=== PATIENT | male | born 1990 | race Caucasian/White ===

== ENCOUNTER 2016-08-09 15:58 | Emergency (ER) | payer SELFPAY ==
[2016-08-09 16:25] VITALS: BP 171/76
--- NOTE | 2016-08-09 17:20 | RAD ---
INDICATION: Injury COMPARISON: None TECHNIQUE: Routine 2 view imaging was performed FINDINGS: Bones: There are no acute bony findings. There are no significant osteoarthritic findings. Alignment: There is mild kyphoscoliosis Disc spaces: The disc spaces are well-maintained Soft tissues: There are no soft tissue abnormalities. IMPRESSION: MILD KYPHOSCOLIOSIS, OTHERWISE NEGATIVE.
--- NOTE | 2016-08-09 17:38 | UC ---
Back Pain HPI - HPI Summary HPI Summary: PATIENT ARRIVES WITH 2 WEEK HISTORY OF MID THORACIC BACK PAIN AFTER INJURING IT ON A WOOD OBJECT IN HIS GARAGE. HE STATES THE PAIN WAS NOT THERE AFTER INJURY, BUT NOW HAS BECOME WORSE. HE REQUESTS AN XRAY TO MAKE SURE NOTHING HAS BEEN FRACTURED. HE IS ALSO C/O RIGHT SHOULDER PAIN WHICH HAS BEEN PRESENT FOR SEVERAL WEEKS AND HAS BEEN GETTING WORSE. 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 THE PAIN TRAVELS FROM THE BASE OF THE NECK ON THE RIGHT SIDE TO THE POSTERIOR SHOULDER. HE HAS FULL ROM OF BOTH ARMS. HE IS ABLE TO ROTATE AT THE HIPS AND CAN FLEX AND EXTEND AT THE HIPS, BUT WITH PAIN. - History of Current Complaint Chief Complaint: UCBackPain Stated Complaint: BACK PAIN Time Seen by Provider: 08/09/16 16:35 Hx Obtained From: Patient Onset/Duration: Sudden Onset Timing: Constant Severity Initially: Moderate Severity Currently: Moderate Pain Intensity: 8 Pain Scale Used: 0-10 Numeric Back Pain: Is Discrete @ - MID THORACIC BACK AND RIGHT POSTERIOR SHOULDER Character: Dull, Spasmodic Aggravating: Movement, Lifting, Bending, Walking Alleviating: Heat Associated Signs And Symptoms: Positive: Negative - Risk Factors AAA Risk Factors: Negative TAD Risk Factors: Negative Cauda Equina Risk Factors: Negative Epidural Abscess Risk Factors: Negative - Allergies/Home Medications Allergies/Adverse Reactions: Allergies Allergy/AdvReac Type Severity Reaction Status Date / Time Cefaclor [From Replaced By [facility]] Allergy Intermediate Hives Verified 08/09/16 16:25 Home Medications: Home Medications Acetaminophen TAB* [Tylenol TAB*] 650 mg PO Q4H PRN 08/09/16 [History Confirmed 08/09/16] PMH/Surg Hx/FS Hx/Imm Hx Previously Healthy: Yes Endocrine History Of: Denies: Diabetes Cardiovascular History Of: Reports: Hypertension Respiratory History Of: Denies: Asthma - Surgical History Surgical History: Yes Surgery Procedure, Year, and Place: t & a. right knee/ACL. ear tubes. left hand/foreign body. pyelonidal cyst - Family History Known Family History: Positive: Other - dad with AAA - Social History Occupation: Employed Full-time Lives: With Family Alcohol Use: Rare Substance Use Type: None Smoking Status (MU): Former Smoker Type: Smokeless Tobacco Amount Used/How Often: /2 CAN Length of Time of Smoking/Using Tobacco: 3 YRS Have You Smoked in the Last Year: No Review of Systems Constitutional: Negative Skin: Negative ENT: Negative Respiratory: Negative Cardiovascular: Negative Gastrointestinal: Negative Musculoskeletal: Negative Neurological: Negative Psychological: Negative All Other Systems Reviewed And Are Negative: Yes Physical Exam Triage Information Reviewed: Yes Appearance: Well-Appearing, No Pain Distress, Well-Nourished Vital Signs: Initial Vital Signs Temp 99 F 08/09/16 16:17 Pulse 90 08/09/16 16:17 Resp 18 08/09/16 16:17 BP 171/76 08/09/16 16:17 Pulse Ox 99 08/09/16 16:17 Vital Signs Reviewed: Yes Eyes: Positive: Conjunctiva Clear ENT Exam: Normal ENT: Positive: Normal ENT inspection, Hearing grossly normal, Pharynx normal Respiratory Exam: Normal Respiratory: Positive: Chest non-tender, Lungs clear Cardiovascular Exam: Normal Musculoskeletal: Positive: Strength Intact Neurological Exam: Normal Neurological: Positive: Alert Psychological Exam: Normal Psychological: Positive: Normal Response To Family, Age Appropriate Behavior Skin Exam: Normal Back Pain Course/Dx - Course Course Of Treatment: PATIENT ENCOURAGED TO FOLLOW UP WITH ORTHO. NOTE GIVEN FOR WORK FOR OVERUSE INJURY OF THE RIGHT SHOULDER. MID THORACIC BACK PAIN FROM BACK CONTUSION 2 WEEKS AGO. FLEXERIL GIVEN FOR SHOULDER PAIN. - Differential Dx/Diagnosis Differential Diagnosis/HQI/PQRI: Compressive Cord Syndrome, Fracture, Strain, Sprain Provider Diagnoses: BACK CONTUSION AND SHOULDER TENDINITIS Discharge - Discharge Plan Condition: Stable Disposition: HOME Prescriptions: Cyclobenzaprine TAB* [Flexeril 10 MG TAB*] 10 mg PO BID PRN #20 tab PRN Reason: Pain Patient Education Materials: Tendinitis (ED), Back Pain (ED) Forms: *Work Release Referrals: Trent Slaughter MD [Primary Care Provider] - Additional Instructions: IBUPROFEN 600MG THREE TIMES DAILY X 7 DAYS. USE FLEXERIL FOR THE SHOULDER UP TO TWICE DAILY FOR 7 DAYS. USE MOIST HEAT TO THE AREA SEVERAL TIMES PER DAY. Flexeril: This medication is a muscle relaxant and can help relieve muscle spasms, muscle strain, or pain sensations. Flexeril can cause side effects that may impair your thinking or reactions. Be careful if you drive or do anything that requires you to be awake and alert. Avoid drinking alcohol, which can increase some of the side effects of Flexeril. Ibuprofen 600mg three times daily with meals for discomfort. Return to ED if symptoms worsen or fail to improve, notice worsening swelling, warmth or redness around the joint, develop fever, or pain is uncontrolled with OTC medications. Moist heat to the area for comfort. Warm showers or baths may improve symptoms. It is important to remain mobile as tolerated to prevent stiffening of the joints and delay healing. Follow up with your PCP. If symptoms remain for > 6 weeks, please seek special medical attention from an orthopedic physician.
== END 2016-08-09 17:50 | disposition home or self-care (01) ==
LOC: UCCORT 15:58
DX: S20.229A Contusion of unspecified back wall of thorax, initial encounter (principal); X58.XXXA Exposure to other specified factors, initial encounter; Y93.9 Activity, unspecified; Y92.9 Unspecified place or not applicable; M75.91 Shoulder lesion, unspecified, right shoulder; I10 Essential (primary) hypertension; Z88.1 Allergy status to other antibiotic agents; Z87.891 Personal history of nicotine dependence
CPT/HCPCS: 72070; 99212; G0463

== ENCOUNTER 2016-09-11 11:16 | Emergency (ER) | payer BC ==
--- NOTE | 2016-09-11 14:26 | RAD ---
HISTORY: Persistent pain, numbness of right great toe COMPARISONS: None VIEWS: 3, Frontal, lateral, and oblique views of the first digit of the right foot FINDINGS: BONE DENSITY: Normal. BONES: There is no displaced fracture. JOINTS: There is no arthropathy. ALIGNMENT: There is no dislocation. SOFT TISSUES: Unremarkable. OTHER FINDINGS: None. IMPRESSION: NO ACUTE OSSEOUS INJURY. IF SYMPTOMS PERSIST, RECOMMEND REPEAT IMAGING.
--- NOTE | 2016-09-11 14:52 | UC ---
Ear Complaint HPI - HPI Summary HPI Summary: RIGHT EAR PAIN FOR ONE WEEK. RIGHT GREAT TOE PAIN FOR SEVERAL WEEKS, PAIN AT TIP OF TOE. NO INJURY. NO DM. NO HX OF GOUT. NO FEVER. HAS HAD NASAL CONGESTION AND PRESSURE FOR A WEEK. - History of Current Complaint Chief Complaint: UCEar Stated Complaint: RIGHT EAR COMPLAINT Time Seen by Provider: 09/11/16 13:35 Hx Obtained From: Patient Onset/Duration: Gradual Onset, Lasting Weeks, Still Present Severity Initially: Mild Severity Currently: Moderate Associated Signs/Symptoms: Positive: URI Symptoms. Negative: Discharge, Hearing Loss, Foreign Body Sensation, Trauma to Ear, Swelling @ - Allergies/Home Medications Allergies/Adverse Reactions: Allergies Allergy/AdvReac Type Severity Reaction Status Date / Time Cefaclor [From [facility]] Allergy Intermediate Hives Verified 09/11/16 11:52 PMH/Surg Hx/FS Hx/Imm Hx Previously Healthy: Yes Endocrine History Of: Denies: Diabetes Cardiovascular History Of: Reports: Hypertension Respiratory History Of: Denies: Asthma - Surgical History Surgical History: Yes Surgery Procedure, Year, and Place: t & a. right knee/ACL. ear tubes. left hand/foreign body. pyelonidal cyst - Family History Known Family History: Positive: Diabetes, Other - dad with AAA; NO HISTORY OF GOUT - Social History Occupation: Employed Full-time Lives: With Family Alcohol Use: Occasionally Substance Use Type: None Smoking Status (MU): Heavy Every Day Tobacco Smoker Type: Smokeless Tobacco Amount Used/How Often: 1 CAN Length of Time of Smoking/Using Tobacco: started at age 22 Have You Smoked in the Last Year: No Cessation Counseling: Patient Advised to Stop Review of Systems Constitutional: Negative Skin: Negative Eyes: Negative ENT: Ear Ache, Nasal Discharge Respiratory: Cough Cardiovascular: Negative Gastrointestinal: Negative Genitourinary: Negative Motor: Negative Neurovascular: Negative Musculoskeletal: Arthralgia - RIGHT GREAT TOE, Myalgia - RIGHT GREAT TOE Neurological: Negative Psychological: Negative All Other Systems Reviewed And Are Negative: Yes Physical Exam Triage Information Reviewed: Yes Appearance: Well-Appearing, No Pain Distress, Well-Nourished Vital Signs: Initial Vital Signs Temp 98.4 F 09/11/16 11:44 Pulse 90 09/11/16 11:44 Resp 14 09/11/16 11:44 BP 166/85 09/11/16 11:44 Pulse Ox 100 09/11/16 11:44 Vital Signs Reviewed: Yes Eye Exam: Normal Eyes: Positive: Conjunctiva Clear ENT: Positive: Normal ENT inspection, Hearing grossly normal, Pharynx normal, TM bulging, TM dull Dental Exam: Normal Neck exam: Normal Neck: Positive: Supple, Nontender Respiratory Exam: Normal Respiratory: Positive: Chest non-tender, Lungs clear, Normal breath sounds, No respiratory distress, No accessory muscle use Cardiovascular Exam: Normal Cardiovascular: Positive: RRR, No Murmur, Pulses Normal Abdominal Exam: Normal Musculoskeletal Exam: Normal Musculoskeletal: Positive: Strength Intact, ROM Intact, No Edema, Other: - RIGHT GREAT TOE NO BRUISING, NO RASHES, NO LESIONS. TENDER TO DISTAL TIP OF TOE Neurological Exam: Normal Psychological Exam: Normal Skin Exam: Normal Ear Complaint Course/Dx - Differential Dx/Diagnosis Differential Diagnosis/HQI/PQRI: Otitis Media, URI Provider Diagnoses: RIGHT GREAT TOE ARTHRALGIA;. SINSUITIS; RIGHT OTITIS MEDIA Discharge - Discharge Plan Condition: Stable Disposition: HOME Prescriptions: Amoxicillin/Clavulanate TAB* [Augmentin TAB 875*] 875 mg PO BID #20 tab Patient Education Materials: Sinusitis (ED), Otitis Media (ED), Arthralgia (ED) Forms: *Work Release Referrals: Trent Slaughter MD [Primary Care Provider] -
[2016-09-11 14:55] VITALS: BP 151/74
== END 2016-09-11 14:51 | disposition home or self-care (01) ==
LOC: UCCORT 11:16
DX: H66.91 Otitis media, unspecified, right ear (principal); J32.9 Chronic sinusitis, unspecified; M79.674 Pain in right toe(s); Z88.1 Allergy status to other antibiotic agents; F17.210 Nicotine dependence, cigarettes, uncomplicated
CPT/HCPCS: 99212; G0463

== ENCOUNTER 2016-11-21 16:04 | Emergency (ER) | payer BC ==
[2016-11-21 16:47] VITALS: BP 156/85
--- NOTE | 2016-11-21 18:08 | RAD ---
INDICATION: "Tripped in pothole while drunk last night" COMPARISON: None. TECHNIQUE: 3 views of the left ankle were obtained. FINDINGS: There is soft tissue swelling overlying the fibular malleolus. The well corticated bones of the ankle exhibit normal alignment. Joint spaces appear maintained. No fracture is seen. On the oblique view of the ankle there is identification of possible cortical discontinuity involving the distal left fifth metatarsal. IMPRESSION: 1. SOFT TISSUE SWELLING WITHOUT RADIOGRAPHICALLY APPARENT ANKLE FRACTURE OR DISLOCATION. 2. POSSIBLE NONDISPLACED FRACTURE INVOLVING THE DISTAL LEFT FIFTH METATARSAL. IF THE PATIENT EXHIBITS PAIN AT THIS PART OF HIS FOOT THIS CAN BE FURTHER CHARACTERIZED WITH RADIOGRAPHIC SERIES OF THE LEFT FOOT.
--- NOTE | 2016-11-21 18:12 | UC ---
Lower Extremity/Ankle HPI - HPI Summary HPI Summary: Pt reports that he was drinking alcohol last night and tripped in pot hole and twisted left ankle. Pt has history fracture of growth plate in left ankle. - History of Current Complaint Chief Complaint: UCLowerExtremity Stated Complaint: lft ankle injury Time Seen by Provider: 11/21/16 17:22 Hx Obtained From: Patient Onset/Duration: Sudden Onset, Still Present Severity Initially: Mild Severity Currently: Moderate Aggravating Factor(s): Standing, Ambulation Alleviating Factor(s): Rest, Elevation Able to Bear Weight: Yes - minimal - Risk Factors Gout Risk Factors: Male, Obesity - Allergies/Home Medications Allergies/Adverse Reactions: Allergies Allergy/AdvReac Type Severity Reaction Status Date / Time [facility] Allergy Intermediate Hives Verified 11/21/16 16:47 Home Medications: Home Medications NK [No Home Medications Reported] 11/21/16 [History Confirmed 11/21/16] PMH/Surg Hx/FS Hx/Imm Hx Previously Healthy: Yes - Surgical History Surgical History: Yes Surgery Procedure, Year, and Place: t & a. right knee/ACL. ear tubes. left hand/foreign body. pyelonidal cyst - Family History Known Family History: Positive: Diabetes, Other - dad with AAA; NO HISTORY OF GOUT - Social History Occupation: Employed Full-time Lives: With Family Alcohol Use: Occasionally Alcohol Amount: weekends Substance Use Type: None Smoking Status (MU): Former Smoker Type: Smokeless Tobacco Amount Used/How Often: 1/2 CAN Length of Time of Smoking/Using Tobacco: 3 YRS Have You Smoked in the Last Year: No Review of Systems Constitutional: Negative Skin: Bruising - left lateral ankle Eyes: Negative ENT: Negative Respiratory: Negative Cardiovascular: Negative Gastrointestinal: Negative, Abdominal Pain Genitourinary: Negative Motor: Decreased ROM - left ankle Neurovascular: Negative Musculoskeletal: Arthralgia - left ankle, Decreased ROM - left ankle, Edema - left lateral ankle, Myalgia - left ankle Neurological: Negative Psychological: Negative All Other Systems Reviewed And Are Negative: Yes Physical Exam Triage Information Reviewed: Yes Appearance: Well-Appearing Vital Signs: Initial Vital Signs Temp 98.7 F 11/21/16 16:43 Pulse 90 11/21/16 16:43 Resp 18 11/21/16 16:43 BP 156/85 11/21/16 16:43 Pulse Ox 98 11/21/16 16:43 Vital Signs Reviewed: Yes Eye Exam: Normal ENT Exam: Normal Dental Exam: Other Dental: Positive: Other: - poor dentition Neck exam: Normal Respiratory Exam: Normal Cardiovascular Exam: Normal Musculoskeletal Exam: Other Musculoskeletal: Positive: Strength Limited @ - left ankle, ROM Limited @, Edema @ - left lateral ankle Neurological Exam: Normal Psychological Exam: Normal Skin Exam: Normal Lower Extremity Course/Dx - Differential Dx/Diagnosis Differential Diagnosis/HQI/PQRI: Fracture (Closed), Sprain - left ankle Provider Diagnoses: left ankle sprain. Discharge - Discharge Plan Condition: Stable Disposition: HOME Patient Education Materials: Ankle Sprain (ED) Forms: *Work Release Referrals: Ulysses Morrow MD [Medical Doctor] - Trent Slaughter MD [Primary Care Provider] - If Needed
== END 2016-11-21 18:27 | disposition home or self-care (01) ==
LOC: UCCORT 16:04
DX: S93.402A Sprain of unspecified ligament of left ankle, initial encounter (principal); X50.1XXA Overexertion from prolonged static or awkward postures, initial encounter; Y93.9 Activity, unspecified; Y92.89 Other specified places as the place of occurrence of the external cause; Z88.1 Allergy status to other antibiotic agents; Z87.891 Personal history of nicotine dependence
CPT/HCPCS: 99212; G0463

== ENCOUNTER 2017-07-25 11:05 | Emergency (ER) | payer SELFPAY ==
[2017-07-25 11:47] VITALS: BP 137/70
--- NOTE | 2017-07-25 12:10 | UC ---
Lower Extremity/Ankle HPI - HPI Summary HPI Summary: right ankle pain x 1 day inversion injury of right ankle at his place of work pain and swelling of the right ankle , pain with walking - History of Current Complaint Chief Complaint: UCLowerExtremity Stated Complaint: WC-RT ANKLE INJURY Time Seen by Provider: 07/25/17 11:55 Hx Obtained From: Patient Onset/Duration: Sudden Onset, Lasting Days - 1, Still Present Severity Initially: Moderate Severity Currently: Moderate Pain Intensity: 6 Aggravating Factor(s): Standing, Ambulation Alleviating Factor(s): Rest, Elevation Able to Bear Weight: Yes - Allergies/Home Medications Allergies/Adverse Reactions: Allergies Allergy/AdvReac Type Severity Reaction Status Date / Time cefaclor [From [facility]] Allergy Unknown Hives Verified 07/25/17 11:39 Home Medications: Home Medications Aspirin TAB* [Aspirin 325 MG TAB*] 650 mg PO Q6H PRN 07/25/17 [History Confirmed 07/25/17] PMH/Surg Hx/FS Hx/Imm Hx Cardiovascular History: Hypertension Respiratory History: Asthma - Surgical History Surgical History: Yes Surgery Procedure, Year, and Place: t & a. right knee/ACL. ear tubes. left hand/foreign body. pyelonidal cyst - Family History Known Family History: Positive: Diabetes, Other - dad with AAA; NO HISTORY OF GOUT - Social History Alcohol Use: Occasionally Alcohol Amount: weekends Substance Use Type: None Smoking Status (MU): Former Smoker Type: Smokeless Tobacco Amount Used/How Often: 1/2 CAN Length of Time of Smoking/Using Tobacco: 3 YRS Have You Smoked in the Last Year: No Review of Systems Constitutional: Negative Skin: Negative Eyes: Negative ENT: Negative Respiratory: Negative Is Patient Immunocompromised?: No All Other Systems Reviewed And Are Negative: Yes Physical Exam Triage Information Reviewed: Yes Appearance: Pain Distress, Obese Vital Signs: Initial Vital Signs Temp 98.1 F 07/25/17 11:40 Pulse 89 07/25/17 11:40 Resp 18 07/25/17 11:40 BP 137/70 07/25/17 11:40 Pulse Ox 98 07/25/17 11:40 Vital Signs Reviewed: Yes Eyes: Positive: Conjunctiva Clear ENT: Positive: Normal ENT inspection, Hearing grossly normal, Pharynx normal Neck: Positive: Supple, Nontender, No Lymphadenopathy Respiratory: Positive: Chest non-tender, Lungs clear, Normal breath sounds Cardiovascular: Positive: RRR, No Murmur, Pulses Normal Musculoskeletal: Positive: Other: - right ankle: + swelling lateral ankle, + tenderness lateral ankle , limited ROM on flexion limited strength Diagnostics - Laboratory Diagnostic Studies Completed/Ordered: xray left ankle: IMPRESSION: SOFT TISSUE SWELLING. NO ACUTE OSSEOUS INJURY. IF SYMPTOMS PERSIST, RECOMMEND REPEAT. IMAGING. Lower Extremity Course/Dx - Differential Dx/Diagnosis Provider Diagnoses: sprain right ankle Discharge - Sign-Out/Discharge Documenting (check all that apply): Discharge - Discharge Plan Condition: Stable Disposition: HOME Patient Education Materials: Ankle Sprain (ED) Forms: *Work Release Referrals: Trent Slaughter MD [Primary Care Provider] - 7 Days - Billing Disposition and Condition Condition: STABLE Disposition: HOME
--- NOTE | 2017-07-25 12:23 | RAD ---
HISTORY: Right ankle inversion injury COMPARISONS: None VIEWS: 3, Frontal, lateral, and oblique views of the right ankle FINDINGS: BONE DENSITY: Normal. BONES: There is no displaced fracture. JOINTS: There is no arthropathy. ALIGNMENT: There is no dislocation. SOFT TISSUES: There is soft tissue swelling over lateral malleolus. OTHER FINDINGS: None. IMPRESSION: SOFT TISSUE SWELLING. NO ACUTE OSSEOUS INJURY. IF SYMPTOMS PERSIST, RECOMMEND REPEAT IMAGING.
== END 2017-07-25 12:41 | disposition home or self-care (01) ==
LOC: UCCORT 11:05
DX: S93.401A Sprain of unspecified ligament of right ankle, initial encounter (principal); X50.0XXA Overexertion from strenuous movement or load, initial encounter; Y93.9 Activity, unspecified; Y92.9 Unspecified place or not applicable; Y99.0 Civilian activity done for income or pay; Z88.1 Allergy status to other antibiotic agents; I10 Essential (primary) hypertension; F17.221 Nicotine dependence, chewing tobacco, in remission
CPT/HCPCS: 99212; G0463

== ENCOUNTER 2018-11-10 20:51 | Emergency (ER) | payer OTHER ==
[2018-11-10] MEDS ORDERED: hydrALAZINE IV* 20 MG/ML VIAL IV SLOW PU ONE (21:17)
--- NOTE | 2018-11-10 21:27 | ED ---
Complex/Multi-Sys Presentation - HPI Summary HPI Summary: Patient is a 27 y/o M presenting to ED via EMS with complaints of light- headedness, chest tightness, and fatigue. 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 He has been at work since 1529 today. Patient felt hot and began to walk to a water cooler. As he was walking, he experienced light-headedness and fatigue. He went to sit down and experienced onset of chest tightness. At present, patient reports chest tightness is still present, no longer light-headed or fatigued. Chest tightness is at upper sternal area. PMHx of HTN, patient states that he was on hydralazine in high school but was taken off of it as his blood pressure normalized. He additionally notes that he was formerly on sertraline for depression. He states that he drank a lot of fluids today. Patient chews tobacco. Home medications and allergies are reviewed. - History Of Current Complaint Chief Complaint: EDDizziness Time Seen by Provider: 11/10/18 21:09 Hx Obtained From: Patient Onset/Duration: Sudden Onset, Still Present - chest tightness, Resolved - fatigue, light-headedness Timing: Intermittent, Lasting: Severity Currently: Mild Location: Pain At: - upper sternal area Associated Signs And Symptoms: Positive: Dizziness - light-headed, Chest Pain, Other - positive - fatigue - Allergies/Home Medications Allergies/Adverse Reactions: Allergies Allergy/AdvReac Type Severity Reaction Status Date / Time cefaclor [From [facility]] Allergy Unknown Hives Verified 11/10/18 21:08 PMH/Surg Hx/FS Hx/Imm Hx Endocrine/Hematology History: Denies: Hx Diabetes Cardiovascular History: Reports: Hx Hypertension Respiratory History: Denies: Hx Asthma GI History: Reports: Hx Ulcer - EXERSIZE INDUCED - Surgical History Surgery Procedure, Year, and Place: t & a. right knee/ACL. ear tubes. left hand/foreign body. pyelonidal cyst Infectious Disease History: Yes Infectious Disease History: Reports: Hx of Known/Suspected MRSA Denies: Traveled Outside the [place] in Last 30 Days - Family History Known Family History: Positive: Diabetes, Other - dad with AAA; NO HISTORY OF GOUT - Social History Alcohol Use: Occasionally Alcohol Amount: weekends Substance Use Type: Reports: None Smoking Status (MU): Never Smoked Tobacco Type: Smokeless Tobacco Amount Used/How Often: 1/2 CAN Length of Time of Smoking/Using Tobacco: 3 YRS Have You Smoked in the Last Year: No Review of Systems Positive: Fatigue Positive: Chest Pain Neurological: Other - positive - dizziness All Other Systems Reviewed And Are Negative: Yes Physical Exam - Summary Physical Exam Summary: VITAL SIGNS: Reviewed. GENERAL: Patient is a well-developed and nourished male who is lying comfortable in the stretcher. Patient is not in any acute respiratory distress. HEAD AND FACE: No signs of trauma. No ecchymosis, hematomas or skull depressions. No sinus tenderness. EYES: PERRLA, EOMI x 2, No injected conjunctiva, no nystagmus. EARS: Hearing grossly intact. Ear canals and tympanic membranes are within normal limits. MOUTH: Oropharynx within normal limits. NECK: Supple, trachea is midline, no adenopathy, no JVD, no carotid bruit, no c- spine tenderness, neck with full ROM CHEST: Symmetric, no tenderness at palpation LUNGS: Clear to auscultation bilaterally. No wheezing or crackles. CVS: Regular rate and rhythm, S1 and S2 present, no murmurs or gallops appreciated. ABDOMEN: Soft, non-tender. No signs of distention. No rebound no guarding, and no masses palpated. Bowel sounds are normal. EXTREMITIES: FROM in all major joints, no edema, no cyanosis or clubbing. NEURO: Alert and oriented x 3. No acute neurological deficits. Speech is normal and follows commands. SKIN: Dry and warm Triage Information Reviewed: Yes Vital Signs On Initial Exam: Initial Vitals Pulse Pulse Ox 87 98 11/10/18 21:00 11/10/18 21:00 Vital Signs Reviewed: Yes Diagnostics - Vital Signs Vital Signs Temp Pulse Resp BP Pulse Ox 11/10/18 21:03 98.4 F 67 17 155/80 99 11/10/18 21:02 70 155/80 99 11/10/18 21:00 87 98 - Laboratory Result Diagrams: 11/10/18 22:10 11/10/18 22:10 Lab Statement: Any lab studies that have been ordered have been reviewed, and results considered in the medical decision making process. - EKG 2058 Cardiac Rate: NL - rate of 72 BPM EKG Rhythm: Sinus Rhythm Summary of EKG Findings: EKG showed sinus rhythm with rate of 73 BPM, LVH. Complex Multi-Symp Course/Dx Course Of Treatment: Patient is a 27 y/o M presenting to ED via EMS with complaints of light-headedness, chest tightness, and fatigue. 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 He has been at work since 1529 today. Patient felt hot and began to walk to a water cooler. As he was walking, he experienced light-headedness and fatigue. He went to sit down and experienced onset of chest tightness. At present, patient reports chest tightness is present, no longer light-headed or fatigued. Physical exam is unremarkable. Patient is a 27 y/o M presenting to ED via EMS with complaints of light-headedness, chest tightness, and fatigue. 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 He has been at work since 1529 today. Patient felt hot and began to walk to a water cooler. As he was walking, he experienced light-headedness and fatigue. He went to sit down and experienced onset of chest tightness. At present, patient reports chest tightness is present, no longer light-headed or fatigued. Physical exam is unremarkable. EKG showed sinus rhythm with rate of 73 BPM, LVH. Labs showed Hct 39, sodium 130, potassium 3.2, BUN/creatinine ratio 7.2. During ED course, patient was given apresoline 5 mg IV and Klor Con Er Tab 40 meq PO. Patient was discharged to home with prescription for lisinopril and follow up with PCP. - Diagnoses Provider Diagnoses: Heat exhaustion, Hypertension, Atypical chest pain Discharge - Sign-Out/Discharge Documenting (check all that apply): Patient Departure - discharge Patient Received Moderate/Deep Sedation with Procedure: No - Discharge Plan Condition: Stable Disposition: HOME Prescriptions: Lisinopril TAB* [Prinivil TAB 5 MG*] 5 mg PO DAILY #30 tab Patient Education Materials: Chest Pain (ED), Heat Exhaustion (ED), Hypertension (ED) Referrals: [facility] [address] [Outside] - 3 Days Additional Instructions: RETURN TO ED FOR ANY NEW OR WORSENING SYMPTOMS. TAKE YOUR BLOOD PRESSURE MEDICATIONS. FOLLOW UP WITH YOUR PRIMARY CARE PHYSICIAN WITHIN THREE DAYS. - Attestation Statements Document Initiated by Scribe: Yes Documenting Scribe: GALLO LYLES Provider For Whom Scribe is Documenting (Include Credential): MARCIO PAVON MD Scribe Attestation: I, GALLO LYLES, scribed for MARCIO PAVON MD on 11/10/18 at 2305. Status of Scribe Document: Ready
[2018-11-10 22:33] LABS: Albumin 4.1 g/dL (3.2-5.2); Albumin/Globulin Ratio 1.7 (1-3); BUN/Creatinine Ratio 7.2 (8-20); Calcium 8.8 mg/dL (8.6-10.3); EGFR African American 136.6 (>60); EGFR Non-African American 112.9 (>60); Globulin 2.4 g/dL (2-4); Magnesium 1.9 mg/dL (1.9-2.7); Potassium 3.2 mmol/L (3.5-5.0); Total Bilirubin 0.7 mg/dL (0.2-1.0); Total Protein 6.5 g/dL (6.4-8.9)
[2018-11-10 22:34] LABS: ABS Eosinophils 0.1 10^3/ul (0-0.6); ABS Lymphocytes 1.5 10^3/ul (1.0-4.8); ABS Monocytes 0.4 10^3/ul (0-0.8); ABS Neutrophils 3.4 10^3/ul (1.5-7.7); Eosinophil % 1.7 %; Hematocrit 39 % (42-52); Lymphocyte % 27.5 %; Mean Corpuscular HGB Conc 36 g/dL (31-36); Mean Corpuscular Hemoglobin 31 pg (27-31); Mean Corpuscular Volume 87 fL (80-94); Mean Platelet Volume 8.2 fL (7.4-10.4); Nucleated Red Blood Cells % 0.1; Platelet Count 223 10^3/uL (150-450); Red Blood Count 4.47 10^6 /uL (4.18-5.48); Red Cell Distribution Width 13 % (10-15); White Blood Count 5.4 10^3/uL (3.5-10.8)
[2018-11-10] MEDS ORDERED: Potassium Chlor TAB* 20 MEQ TAB.ER PO ONE (22:39)
[2018-11-10 23:39] VITALS: BP 141/82
== END 2018-11-10 23:25 | disposition home or self-care (01) ==
LOC: ED 20:51
DX: T67.5XXA Heat exhaustion, unspecified, initial encounter (principal); I10 Essential (primary) hypertension; R07.89 Other chest pain; X58.XXXA Exposure to other specified factors, initial encounter; Y92.89 Other specified places as the place of occurrence of the external cause; Y99.0 Civilian activity done for income or pay; Z88.1 Allergy status to other antibiotic agents; Z87.891 Personal history of nicotine dependence
CPT/HCPCS: 36415; 80053; 82550; 83735; 84484; 85025; 93005; 96374; 99284; A9270-GY; J0360

== ENCOUNTER 2018-12-25 21:06 | Emergency (ER) | payer SELFPAY ==
[2018-12-25 21:15] VITALS: BP 156/98
[2018-12-25] MEDS ORDERED: Al Hydrox/Mg Hydrox/Simet LIQ* 30 ML UDC PO ONE (21:30)
[2018-12-25] MEDS ORDERED: Aspirin 81 mg CHEW TAB* 81 MG TAB.CHEW PO ONE (21:31)
--- NOTE | 2018-12-25 21:32 | UC ---
Cardiac HPI - HPI Summary HPI Summary: 28yo male c/o chest pain. Started yesterday afternoon. Seen in [facility] yesterday. Patient reports all the lab work from the Emergency deartment was normal and he was released. Patient reports Has had chest pressure since yesterday afternoon, it continued after he left the Emergency Department. 7/10 pressure, positive nausea. Radiates to neck. Hx HTN. Was on lisinopril which he stopped and was restarted in the Emergency Department. Blood pressure has been elevated, he took 2 doses of lisinopril today. - History of Current Complaint Chief Complaint: UCChestPain Stated Complaint: CHEST BURNING/TIGHTNESS Time Seen by Provider: 12/25/18 21:09 Pain Intensity: 4 - Allergy/Home Medications Allergies/Adverse Reactions: Allergies Allergy/AdvReac Type Severity Reaction Status Date / Time cefaclor [From [facility]] Allergy Unknown Hives Verified 12/25/18 21:15 PMH/Surg Hx/FS Hx/Imm Hx Previously Healthy: Yes Cardiovascular History: Hypertension - Surgical History Surgical History: Yes Surgery Procedure, Year, and Place: t & a. right knee/ACL. ear tubes. left hand/foreign body. pyelonidal cyst - Family History Known Family History: Positive: Diabetes, Other - dad with AAA; NO HISTORY OF GOUT - Social History Alcohol Use: Occasionally Alcohol Amount: weekends Substance Use Type: None Smoking Status (MU): Never Smoked Tobacco Type: Smokeless Tobacco Amount Used/How Often: 1/2 CAN Length of Time of Smoking/Using Tobacco: 3 YRS Have You Smoked in the Last Year: No Review of Systems All Other Systems Reviewed And Are Negative: Yes Constitutional: Positive: Negative Skin: Positive: Negative Eyes: Positive: Negative ENT: Positive: Negative Respiratory: Positive: Other - see hpi Cardiovascular: Positive: Other - see hpi Gastrointestinal: Positive: Nausea Genitourinary: Positive: Negative Motor: Positive: Negative Musculoskeletal: Negative: Calf Tenderness, Edema Neurological: Positive: Negative Psychological: Positive: Negative Is Patient Immunocompromised?: No Physical Exam Triage Information Reviewed: Yes Appearance: Well-Appearing, No Pain Distress, Well-Nourished Vital Signs: Initial Vital Signs Temp 98.5 F 12/25/18 21:09 Pulse 79 12/25/18 21:09 Resp 16 12/25/18 21:09 BP 156/98 12/25/18 21:09 Pulse Ox 100 12/25/18 21:09 Vital Signs Reviewed: Yes Eye Exam: Normal Eyes: Positive: Conjunctiva Clear Neck: Positive: Supple Respiratory: Positive: Lungs clear, Normal breath sounds, No respiratory distress Cardiovascular: Positive: RRR Abdomen Description: Positive: Other: - Mild tenderness to palpation in the epigastrium. Bowel Sounds: Positive: Present Musculoskeletal: Positive: Strength Intact, ROM Intact, No Edema - no calf tenderness Neurological: Positive: Alert Psychological: Positive: Age Appropriate Behavior Skin Exam: Normal Diagnostics - EKG Cardiac Rate: NL - AT 2111 Cardiac Rhythm: Sinus: Normal - 77BPM Ectopy: None Summary of EKG Findings: LVH, Borderline T abnormalities inferior leads, ST elevation, probable normal early repol pattern - Assessment/Plan Course Of Treatment: EKG no significant changes from 11/10 EKG. Mild tenderness to palpation in epigastrium therefore, I gave Maalox po. Also given Aspirin 324mg po. I recommended further evaluation and care in the Emergency Department. Patient prefers to go by POV. I discussed the case with the [facility] Physician. - Clinical Impression Provider Diagnosis: Chest pain Discharge ED - Sign-Out/Discharge Documenting (check all that apply): Patient Departure All imaging exams completed and their final reports reviewed: No Studies - Discharge Plan Condition: Stable Disposition: HOME-RECOMMEND TO ED Patient Education Materials: Chest Pain (ED) Referrals: Trent Slaughter MD [Primary Care Provider] - Additional Instructions: GO DIRECTLY TO THE EMERGENCY DEPARTMENT FOR FURTHER EVALUATION OF YOUR CHEST PAIN. - Billing Disposition and Condition Condition: STABLE Disposition: Home-Recommend to ED
== END 2018-12-25 21:41 | disposition home health service (06) ==
LOC: UCCORT 21:06
DX: R07.9 Chest pain, unspecified (principal); I10 Essential (primary) hypertension; F17.220 Nicotine dependence, chewing tobacco, uncomplicated
CPT/HCPCS: 93005; 99212; A9270-GY; G0463

== ENCOUNTER 2019-01-27 20:24 | Emergency (ER) | payer OTHER ==
[2019-01-27] MEDS ORDERED: Ketorolac INJ* 30 MG/ML 1 ML VIAL IV PUSH ONE (20:33)
[2019-01-27] MEDS ORDERED: NS 0.9% 1000 ML** 2,000 ML IV ONE (20:33)
--- NOTE | 2019-01-27 20:39 | ED ---
HPI Chest Pain - HPI Summary HPI Summary: This patient is a 28 year old M presenting to [facility] by EMS with a chief complaint of stiffness and pressure in the left upper chest that travels up to his neck since today 01/27/19 at 1800. Symptoms aggravated by nothing. Symptoms alleviated by nothing. Patient reports he got out of work last night and was drinking until 0900 this morning after which he went to a football game in town. Pt reports he went to work where he felt dizzy and went home (had not slept by then). Pt reports when he laid down to go to sleep he felt a pounding and pressure in his chest. Pt reports when he was driving he got dizzy and felt like he was going to pass out. Pt reports slight shortness of breath. Hx hypertension. - History of Current Complaint Chief Complaint: EDChestPainROMI Time Seen by Provider: 01/27/19 20:25 Hx Obtained From: Patient Onset/Duration: Started Hours Ago, Still Present Timing: Constant Pain Intensity: 4 Pain Scale Used: 0-10 Numeric Character: Pounding, Pressure/Squeezing, Tightness Aggravating Factor(s): Nothing Alleviating Factor(s): Nothing Associated Signs and Symptoms: Positive: Dizziness, Shortness of Breath, Other: - near faint - Allergy/Home Medications Allergies/Adverse Reactions: Allergies Allergy/AdvReac Type Severity Reaction Status Date / Time cefaclor [From [facility]] Allergy Unknown Hives Verified 12/25/18 21:15 PMH/Surg Hx/FS Hx/Imm Hx Endocrine/Hematology History: Denies: Hx Diabetes Cardiovascular History: Reports: Hx Hypertension Respiratory History: Denies: Hx Asthma GI History: Reports: Hx Ulcer - Surgical History Surgery Procedure, Year, and Place: t & a. right knee/ACL. ear tubes. left hand/foreign body. pyelonidal cyst Infectious Disease History: No Infectious Disease History: Reports: Hx of Known/Suspected MRSA Denies: Traveled Outside the [place] in Last 30 Days - Family History Known Family History: Positive: Diabetes, Other - dad with AAA; NO HISTORY OF GOUT - Social History Alcohol Use: Occasionally Alcohol Amount: weekends Hx Substance Use: No Substance Use Type: Reports: None Hx Tobacco Use: No Smoking Status (MU): Never Smoked Tobacco Type: Smokeless Tobacco Amount Used/How Often: 1/2 CAN Length of Time of Smoking/Using Tobacco: 3 YRS Have You Smoked in the Last Year: No Review of Systems Positive: Chest Pain Positive: Shortness Of Breath Neurological: Other - dizziness, near faint All Other Systems Reviewed And Are Negative: Yes Physical Exam - Summary Physical Exam Summary: Appearance: Well-appearing, Well-nourished, lying in bed comfortably Skin: Warm, dry, no obvious rash Eyes: sclera anicteric, no conjunctival pallor ENT: mucous membranes moist, pharynx appears normal Neck: Supple, nontender Respiratory: Clear to auscultation, no signs of respiratory distress Cardiovascular: Normal S1, S2. No murmurs. Normal distal pulses in tibial and radial bilaterally. Abdomen: Soft, nontender, normal active bowel sounds present Musculoskeletal: Normal, Strength/ROM Intact Neurological: A&Ox3, awake and alert, mentation is normal, speech is fluent and appropriate Psychiatric: affect is normal, does not appear anxious or depressed Triage Information Reviewed: Yes Vital Signs On Initial Exam: Initial Vitals Temp Pulse Resp BP Pulse Ox 98.4 F 93 18 147/106 98 01/27/19 20:26 01/27/19 20:26 01/27/19 20:26 01/27/19 20:26 01/27/19 20:26 Vital Signs Reviewed: Yes Procedures - Sedation Patient Received Moderate/Deep Sedation with Procedure: No Diagnostics - Vital Signs Vital Signs Temp Pulse Resp BP Pulse Ox 01/27/19 20:26 98.4 F 93 18 147/106 98 - Laboratory Result Diagrams: 01/27/19 20:45 01/27/19 20:45 Lab Statement: Any lab studies that have been ordered have been reviewed, and results considered in the medical decision making process. - Radiology Chest X-Ray Radiology Interpretation Completed By: ED Physician Summary of Radiographic Findings: Per ED Physician,. no acute process. Pending official report. - EKG 2025 Cardiac Rate: NL - 89 BPM Summary of EKG Findings: NSR at 89 BPM, P waves, QRS complex, and T waves are within normal limits, T waves and intervals are normal, no ischemic changes. non -STEMI. This is a normal EKG. Re-Evaluation - Re-Evaluation First Eval Re-Evaluation Time: 22:51 Comment: Pt agrees to discharge. Chest Pain Course/Dx - Course Course Of Treatment: This patient is a 28 year old M presenting to [facility] by EMS with a chief complaint of stiffness and pressure in the left upper chest that travels up to his neck since today 01/27/19 at 1800. Patient reports he was drinking until 0900 this morning. Pt reports he went to work where he felt dizzy and went home (had not slept by then). Pt reports when he laid down to go to sleep he felt a pounding in his chest and pressure. Pt reports when he was driving he got dizzy and felt like he was going to pass out. Pt reports slight shortness of breath. Physical Exam Findings reveal no abnormalities. An EKG reveals NSR at 89 BPM, P waves, QRS complex, and T waves are within normal limits, T waves and intervals are normal, no ischemic changes. non-STEMI. This is a normal EKG.CXR reveals no acute process. Test results with no significant abnormalities expect for Absolute Lymphs 0.9 L, Glucose 107 H, AST 90 H, ALT 139 H. In the ED course the patient was given 10 mg Toradol IV, saline. Patient will be discharged. The patient is agreeable with this plan. - Diagnoses Provider Diagnoses: Near syncope, Sleep deprivation Discharge ED - Sign-Out/Discharge Documenting (check all that apply): Patient Departure - discharge - Discharge Plan Condition: Good Disposition: HOME Patient Education Materials: Near Syncope (ED) Forms: *Work Release Referrals: Trent Slaughter MD [Primary Care Provider] - If Needed - Billing Disposition and Condition Condition: GOOD Disposition: Home - Attestation Statements Document Initiated by Saraibe: Yes Documenting Scribe: Karen Escalona Provider For Whom Zoey is Documenting (Include Credential): Dr. Alfred Schmitt MD. Scribe Attestation: Karen Allen, scribed for Dr. Alfred Schmitt MD. on 01/28/19 at 1843. Scribe Documentation Reviewed: Yes Provider Attestation: The documentation as recorded by the Karen moran accurately reflects the service I personally performed and the decisions made by me, Dr. Alfred Schmitt MD. Status of Scribe Document: Viewed
[2019-01-27 20:51] LABS: ABS Lymphocytes 0.9 10^3/ul (1.0-4.8); ABS Monocytes 0.4 10^3/ul (0-0.8); ABS Neutrophils 3.1 10^3/ul (1.5-7.7); Hematocrit 44 % (42-52); Hemoglobin 15.4 g/dL (14.0-18.0); Lymphocyte % 19.4 %; Mean Corpuscular HGB Conc 35 g/dL (31-36); Mean Corpuscular Hemoglobin 31 pg (27-31); Mean Corpuscular Volume 89 fL (80-94); Mean Platelet Volume 8.2 fL (7.4-10.4); Nucleated Red Blood Cells % 0.1; Platelet Count 271 10^3/uL (150-450); Red Blood Count 4.92 10^6 /uL (4.18-5.48); Red Cell Distribution Width 12 % (10-15); White Blood Count 4.4 10^3/uL (3.5-10.8)
[2019-01-27 21:08] LABS: Albumin 4.8 g/dL (3.2-5.2); Albumin/Globulin Ratio 1.8 (1-3); BUN/Creatinine Ratio 9.1 (8-20); Calcium 9.8 mg/dL (8.6-10.3); EGFR African American 126.7 (>60); EGFR Non-African American 104.7 (>60); Globulin 2.6 g/dL (2-4); Potassium 4.6 mmol/L (3.5-5.0); Total Bilirubin 0.4 mg/dL (0.2-1.0); Total Protein 7.4 g/dL (6.4-8.9)
[2019-01-27 23:06] VITALS: BP 144/84
== END 2019-01-27 23:00 | disposition home or self-care (01) ==
LOC: ED 20:24
DX: R55 Syncope and collapse (principal); Z72.820 Sleep deprivation; I10 Essential (primary) hypertension; F17.290 Nicotine dependence, other tobacco product, uncomplicated; Z88.1 Allergy status to other antibiotic agents; Z79.899 Other long term (current) drug therapy
CPT/HCPCS: 36415; 71046; 80053; 83605; 84484; 85025; 93005; 96361; 96374; 99283; J1885

== ENCOUNTER 2019-07-10 08:41 | Emergency (ER) | payer SELFPAY ==
[2019-07-10 08:57] VITALS: BP 146/78
--- NOTE | 2019-07-10 09:23 | UC ---
Respiratory Complaint HPI - HPI Summary HPI Summary: cough x 3 days' cough is productive, with yellow sputum worse with deep breathing, better with rest sore throat , nasal congestion , fever, chills, body aches - History of Current Complaint Chief Complaint: UCRespiratory Stated Complaint: COUGH Time Seen by Provider: 07/10/19 08:48 Hx Obtained From: Patient Onset/Duration: Gradual Onset, Lasting Days - 3, Still Present Severity Initially: Moderate Severity Currently: Moderate Pain Intensity: 6 Character: Cough: Productive Aggravating Factors: Exertion, Deep Breaths Alleviating Factors: Nothing Associated Signs And Symptoms: Positive: Fever, Chills, URI, Nasal Congestion - Allergies/Home Medications Allergies/Adverse Reactions: Allergies Allergy/AdvReac Type Severity Reaction Status Date / Time cefaclor [From [facility]] Allergy Unknown Hives Verified 07/10/19 08:49 Home Medications: Home Medications Lisinopril TAB* [Prinivil TAB 5 MG*] 5 mg PO DAILY #30 tab 11/10/18 [Rx Confirmed 07/10/19] Pantoprazole TAB * [Protonix TAB*] 40 mg PO DAILY 07/10/19 [History Confirmed ] PMH/Surg Hx/FS Hx/Imm Hx Previously Healthy: Yes - Surgical History Surgical History: Yes Surgery Procedure, Year, and Place: t & a. right knee/ACL. ear tubes. left hand/foreign body. pyelonidal cyst - Family History Known Family History: Positive: Diabetes, Other - dad with AAA; NO HISTORY OF GOUT - Social History Alcohol Use: Occasionally Alcohol Amount: weekends Substance Use Type: None Smoking Status (MU): Never Smoked Tobacco Type: Smokeless Tobacco Amount Used/How Often: 1/2 CAN Length of Time of Smoking/Using Tobacco: 3 YRS Have You Smoked in the Last Year: No Household Exposure Type: Cigarettes Review of Systems All Other Systems Reviewed And Are Negative: Yes Constitutional: Positive: Fever, Chills, Fatigue Skin: Positive: Negative Eyes: Positive: Negative ENT: Positive: Sore Throat, Nasal Discharge Respiratory: Positive: Cough Cardiovascular: Positive: Negative Is Patient Immunocompromised?: No Physical Exam Triage Information Reviewed: Yes Appearance: Well-Appearing, No Pain Distress, Well-Nourished Vital Signs: Initial Vital Signs Temp 97.8 F 07/10/19 08:50 Pulse 102 07/10/19 08:50 Resp 17 07/10/19 08:50 BP 146/78 07/10/19 08:50 Pulse Ox 100 07/10/19 08:50 Vital Signs Reviewed: Yes Eye Exam: Normal Eyes: Positive: Conjunctiva Clear ENT: Positive: Normal ENT inspection, Hearing grossly normal, Pharynx normal, Nasal congestion, Nasal drainage, TMs normal. Negative: Pharyngeal erythema, TM bulging, TM dull, TM red, Tonsillar swelling, Tonsillar exudate Neck: Positive: Supple, Nontender, No Lymphadenopathy Respiratory: Positive: Chest non-tender, Lungs clear, Normal breath sounds Cardiovascular: Positive: No Murmur, Tachycardia Respiratory Course/Dx - Course Course Of Treatment: htn: monitor your bp , follow up with your pcp - Differential Dx/Diagnosis Provider Diagnosis: Viral illness, Hypertension Discharge ED - Sign-Out/Discharge Documenting (check all that apply): Patient Departure All imaging exams completed and their final reports reviewed: No Studies - Discharge Plan Condition: Stable Disposition: HOME Patient Education Materials: Viral Syndrome (ED) Forms: *Work Release Referrals: Trent Slaughter MD [Primary Care Provider] - If Needed Additional Instructions: viral illness , ? Flu - Billing Disposition and Condition Condition: STABLE Disposition: Home
== END 2019-07-10 09:24 | disposition home or self-care (01) ==
LOC: UCCORT 08:41
DX: B34.9 Viral infection, unspecified (principal); I10 Essential (primary) hypertension; R05 Cough; J02.9 Acute pharyngitis, unspecified; R09.81 Nasal congestion; R68.83 Chills (without fever); R52 Pain, unspecified; R53.83 Other fatigue; R09.89 Other specified symptoms and signs involving the circulatory and respiratory systems; Z79.899 Other long term (current) drug therapy; Z88.1 Allergy status to other antibiotic agents
CPT/HCPCS: 99211; G0463